=== PATIENT | female | born 1955 | race Caucasian/White ===

== ENCOUNTER 2017-10-16 06:33 | Day surgery (SDC) | payer OTHER ==
[~2017-10-16] VITALS: Ht 165.1 cm; Wt 97.1 kg
[~2017-10-16 06:33] MED LIST: AMLODIPINE BESY10 MG PO; HYDROCHLOROTHIA25 MG PO; LIPITOR40 MG PO; LOSARTAN POTAS100 MG PO; METFORMIN HCL500 M1 PO
[2017-10-16] MEDS ORDERED: BAYER CHEWABLE81 MG PO (06:51)
[2017-10-16] MEDS ORDERED: FISH OIL 1,0001 EAC3 (06:52)
--- NOTE | 2017-10-16 08:11 | NUR ---
10/16/17 0811 Larissa Barfield 0806 PATIENT ARRIVES TO PACU AWAKE OFF/ON. NO COMPLAINTS OF PAIN OR NAUSEA. PASSING GAS. RESP EVEN AND UNLABORED, NC AT 2 LITERS, TURNED OFF. 96% ON ROOM AIR.
--- NOTE | 2017-10-16 16:43 | OR ---
[facility] [address], [place] [address] Signed DATE OF OPERATION: 10/16/2017 SURGEON: Zee So MD PREOPERATIVE DIAGNOSIS: Colon screening. POSTOPERATIVE DIAGNOSES: 1. Sigmoid diverticulosis. 2. Small less than 1 cm polyp at 40 cm (excised). PROCEDURE: Total colonoscopy to cecum with snare polypectomy x1. ANESTHESIA: Intravenous sedation, fentanyl 150 mcg and versed 6 mg. INDICATION: This 61-year-old white woman is a patient of Dr. Guzman. She is asymptomatic as regard to colon. She has never had colonoscopy in the past. She is here for screening colonoscopy. She understands the risks of bleeding, infection, and perforation and wished to proceed. FINDINGS: The prep was excellent. Complete colonoscopy was undertaken to the cecum. There was a sessile adenomatous-appearing polyp at 40 cm. This was excised with cold snare polypectomy technique. There were extensive diverticular changes of the sigmoid and left colon otherwise. Remaining colon was normal. DESCRIPTION OF PROCEDURE: The patient was brought to the endoscopy suite and placed in lateral decubitus position, given intravenous sedation to the point of slurred speech and nystagmus. Digital rectal examination was normal. An Olympus video colonoscope was passed in the rectum and manipulated throughout the colon, ultimately intubating the cecum itself. The ileocecal valve appeared normal, as did the appendiceal orifice. The scope was withdrawn from that point. Upon withdrawal of the scope showed no abnormality into the left colon, where numerous diverticula were once again seen. At 40 cm, a small sessile polyp less than a centimeter in size was noted. This was excised with cold snare polypectomy technique. There was no sign of Electronically Signed By: ZEE SO MD 10/16/17 1643 PATIENT NAME: AARON ASTORGA OPERATIVE REPORT DATE OF : 57 REPORT #: [id number] PHYSICIAN: ZEE SO MD PCP: CIRILO GUZMAN DO REPORT IS CONFIDENTIAL AND NOT TO BE RELEASED WITHOUT AUTHORIZATION [facility] [address], [place] [address] Signed bleeding. Further withdrawal of the scope showed no other abnormality. Retroflexed view of the rectum was normal. Scope was removed and the patient was taken to recovery room in good condition. CONCLUDING DIAGNOSIS: Polyps x1 and extensive diverticulosis in sigmoid and left colon. PLAN: Recommend high-fiber diet. Recommend repeat colonoscopy in 2 years, sooner if clinically indicated. MD JANEY Palma/[place] /[id number] cc: Cirilo Guzman DO Copies: CIRILO GUZMAN DO ~ Electronically Signed By: ZEE SO MD 10/16/17 1643 PATIENT NAME: AARON ASTORGA OPERATIVE REPORT DATE OF : 57 REPORT #: [id number] PHYSICIAN: ZEE SO MD PCP: CIRILO GUZMAN DO REPORT IS CONFIDENTIAL AND NOT TO BE RELEASED WITHOUT AUTHORIZATION
== END 2017-10-16 08:50 | disposition home or self-care (01) ==
LOC: DS 06:33 → OPS 06:33 → DS 06:45 → OPS 08:50
PROVIDERS: Surgery
PROC: 0DBN8ZZ Excision of Sigmoid Colon, Via Natural or Artificial Opening Endoscopic (ICD-10-PCS; principal; 2017-10-16 06:45)
DX: Z12.11 Encounter for screening for malignant neoplasm of colon (principal); D12.5 Benign neoplasm of sigmoid colon; K63.5 Polyp of colon; E78.00 Pure hypercholesterolemia, unspecified; I10 Essential (primary) hypertension; I25.2 Old myocardial infarction; Z88.8 Allergy status to other drugs, medicaments and biological substances
CPT/HCPCS: 99153; G0500; J2250; J3010; J7120

== ENCOUNTER 2020-04-30 09:55 | Emergency (ER) | payer OTHER ==
[~2020-04-30] VITALS: Ht 165.1 cm; Wt 86.2 kg
[~2020-04-30 09:55] MED LIST changes: +BAYER CHEWABLE81 MG PO; +FISH OIL 1,0001 EAC3
[2020-04-30] MEDS ORDERED: ATORVASTATIN CA40 MG PO (10:33)
[2020-04-30] MEDS ORDERED: NORVASC10 MG PO (13:53)
[2020-04-30] MEDS ORDERED: COZAAR100 MG PO (13:53)
--- NOTE | 2020-05-01 13:51 | EKG ---
[facility] [address] [facility] [place], [place] [address] Signed Normal sinus rhythm Low voltage QRS Cannot rule out Anterior infarct (cited on or before 02-JAN-2019) Abnormal ECG When compared with ECG of 02-JAN-2019 06:12, premature ventricular complexes are no longer present Questionable change in initial forces of Septal leads Confirmed by CHRISTINA LEWIS DO ([id number]) on 05/01/2020 1:50:53 PM Electronically Signed By: CHRISTINA LEWIS DO 05/01/20 1351 PATIENT NAME: MADELINE ASTORGA Electrocardiogram DATE OF : 57 PHYSICIAN: CHRISTINA LEWIS DO REPORT #: [id number] REPORT IS CONFIDENTIAL AND NOT TO BE RELEASED WITHOUT AUTHORIZATION
== END 2020-04-30 14:06 | disposition home or self-care (01) ==
LOC: ED 09:55
DX: I10 Essential (primary) hypertension (principal); E11.9 Type 2 diabetes mellitus without complications; I25.2 Old myocardial infarction; Z88.8 Allergy status to other drugs, medicaments and biological substances; Z79.899 Other long term (current) drug therapy
CPT/HCPCS: 93005; 93010; 99283-25

== ENCOUNTER 2021-01-23 09:45 | Emergency (ER) | payer OTHER ==
[~2021-01-23] VITALS: Ht 165.1 cm; Wt 99.8 kg
[~2021-01-23 09:45] MED LIST changes: +ATORVASTATIN CA40 MG PO; +COZAAR100 MG PO; +NORVASC10 MG PO
[2021-01-23] MEDS ORDERED: METOPROLOL SUCC25 MG PO (12:55)
--- NOTE | 2021-01-23 22:31 | EKG ---
[facility] [address] [facility] [place] [address] Signed Normal sinus rhythm Normal ECG When compared with ECG of 23-JAN-2021 09:53, (Unconfirmed) premature supraventricular complexes are no longer present Vent. rate has decreased BY [address] less depressed in Anterior leads T wave inversion less evident in Inferior leads Confirmed by CHRISTINA LEWIS DO ([id number]) on 01/23/2021 10:31:40 PM Electronically Signed By: CHRISTINA LEWIS DO 01/23/212230 PATIENT NAME: MADELINE ASTORGA Electrocardiogram DATE OF : 57 PHYSICIAN: CHRISTINA LEWIS DO REPORT #: [id number] REPORT IS CONFIDENTIAL AND NOT TO BE RELEASED WITHOUT AUTHORIZATION
--- NOTE | 2021-01-23 22:32 | EKG ---
[facility] [address] [facility] [place] [address] Signed Supraventricular tachycardia with premature supraventricular complexes ST \T\ T wave abnormality, consider inferior ischemia Abnormal ECG When compared with ECG of 30-APR-2020 10:50, premature supraventricular complexes are now present Vent. rate has increased BY [address] now depressed in Anterolateral leads T wave inversion more evident in Inferior leads Confirmed by CHRISTINA LEWIS DO ([id number]) on 01/23/2021 10:32:00 PM Electronically Signed By: CHRISTINA LEWIS DO 01/23/212231 PATIENT NAME: MADELINE ASTORGA Electrocardiogram DATE OF : 57 PHYSICIAN: CHRISTINA LEWIS DO REPORT #: [id number] REPORT IS CONFIDENTIAL AND NOT TO BE RELEASED WITHOUT AUTHORIZATION
== END 2021-01-23 13:09 | disposition short-term general hospital (02) ==
LOC: ED 09:45
DX: I48.91 Unspecified atrial fibrillation (principal); I10 Essential (primary) hypertension; E11.9 Type 2 diabetes mellitus without complications; I25.2 Old myocardial infarction; Z88.8 Allergy status to other drugs, medicaments and biological substances; Z79.899 Other long term (current) drug therapy; Z20.822 Contact with and (suspected) exposure to COVID-19
CPT/HCPCS: 71045; 80053; 84484; 85025; 93005; 93010; 96374; 96376; 99285-25; C9803; U0003